=== PATIENT | male | born 1960 | race Caucasian/White ===

== ENCOUNTER 2021-03-29 13:50 | Inpatient (IN) | payer BC, MEDICARE ==
[~2021-03-29] VITALS: Ht 170.2 cm; Wt 138.8 kg
[2021-03-29 13:56] VITALS: BP 142/74
[2021-03-29] MEDS ORDERED: NAPROXEN500 MG PO (13:59)
[2021-03-29] MEDS ORDERED: ALLOPURINOL 10100 M3 PO (13:59)
[2021-03-29] MEDS ORDERED: ALL DAY ALLERGY10 M3 PO (13:59)
[2021-03-29] MEDS ORDERED: VITAMIN D310 MC3 PO (14:01)
[2021-03-29] MEDS ORDERED: DRIZALMA SPRINK20 MG PO (14:01)
[2021-03-29] MEDS ORDERED: VITAMIN C500 MG PO (14:01)
[2021-03-29 14:48] LABS: ABSOLUTE LYMPHOCYTES 0.5 thou/uL (0.8-5.3); ABSOLUTE MONOCYTES 0.5 thou/uL (0.0-1.2); ABSOLUTE NEUTROPHILS 3.1 thou/uL (1.6-8.1); BASOPHILS 0.1 %; EOSINOPHILS 0.1 %; HEMATOCRIT 44.1 % (42.0-52.0); HEMOGLOBIN 15.6 gm/dL (14.0-18.0); LYMPHOCYTES 13.1 %; MCH 31.1 pg (26.0-34.0); MCHC 35.3 g/dL (28.0-37.0); MONOCYTES 11.9 %; MPV 7.8 fl. (7.2-11.1); NUCLEATED RBCS 0 /100WBC; PLATELET COUNT* 149 thou/uL (150-400); POLYS 74.8 %; RBC 5.01 mil/uL (4.50-6.00); RDW-CV 13.4 % (10.5-14.5); WBC 4.2 thou/uL (4.0-11.0)
[2021-03-29 14:59] LABS: CALCIUM 8.8 mg/dL (8.5-10.1); POTASSIUM 3.5 mmol/L (3.5-5.1)
[2021-03-29 15:04] LABS: TOTAL BILIRUBIN 0.8 mg/dL (<0.1-1.0); TOTAL PROTEIN 7.3 g/dL (6.4-8.2)
--- NOTE | 2021-03-29 16:12 | EKG ---
[place] [address] ELECTROCARDIOGRAM REPORT Name: JUAN LOERA Room: [place] [address] ADM IN [facility]#: [id number] Admission: 03/29/21 Attend Phys: Elissa Reyes, Discharge: Date of : 58 Date of Service: 03/29/21 1428 Report #: [id number] THIS REPORT FOR: //name// [facility] ED Test Date: 2021-03-29 Test Time: 14:28:09 Pat Name: JUAN LOERA Department: Room: [facility] Gender: M [employer] Representative: AKILA : 1960 Requested By: Paola Schultz Order Number: [id number] MD: Arnol Bermudez Measurements Intervals [place] Rate: 90 P: 44 AK: 145 QRS: 0 QRSD: 82 T: 17 QT: 338 QTc: 414 Interpretive Statements Sinus rhythm No previous ECG available for comparison Electronically Signed On 03-29-2021 16:12:25 GYM SUPERVIS[employer] by Arnol Bermudez [email or web address] <ELECTRONICALLY SIGNED> By: Arnol Bermudez MD, [facility] 03/29/21 1612 1428 1428 Arnol Bermudze MD, [facility] /EPI
[2021-03-29 19:30] VITALS: BP 138/72
[2021-03-29 19:54] LABS: BE 1.1 mmol/L (-2 to +3); PCO2 36.8 mmHg (35.0-45.0); PO2 80.3 mmHg (75.0-100.0); pH 7.446 (7.340-7.450)
[2021-03-30] VITALS (8 sets, daily range): BP systolic 110–143; BP diastolic 50–68
[2021-03-30 03:34] LABS: HEMATOCRIT 40.8 % (42.0-52.0); HEMOGLOBIN 14.3 gm/dL (14.0-18.0); MCH 30.8 pg (26.0-34.0); MPV 7.4 fl. (7.2-11.1); RBC 4.64 mil/uL (4.50-6.00); RDW-CV 13.3 % (10.5-14.5); WBC 4.3 thou/uL (4.0-11.0)
[2021-03-30 03:52] LABS: ALBUMIN 2.5 g/dL (3.4-5.0); CALCIUM 8.4 mg/dL (8.5-10.1); CREATININE 0.7 mg/dL (0.6-1.3); MAGNESIUM 1.9 mg/dL (1.8-2.4); POTASSIUM 3.8 mmol/L (3.5-5.1); TOTAL BILIRUBIN 0.5 mg/dL (<0.1-1.0); TOTAL PROTEIN 6.4 g/dL (6.4-8.2)
[2021-03-31] VITALS: BP 126/59
[2021-03-31 04:34] VITALS: BP 110/50
[2021-03-31 04:38] LABS: HEMATOCRIT 41.3 % (42.0-52.0); HEMOGLOBIN 14.3 gm/dL (14.0-18.0); MCH 30.5 pg (26.0-34.0); MCHC 34.6 g/dL (28.0-37.0); MCV 88.3 fL (80.0-100.0); MPV 7.6 fl. (7.2-11.1); NUCLEATED RBCS 0 /100WBC; PLATELET COUNT* 182 thou/uL (150-400); RBC 4.67 mil/uL (4.50-6.00); RDW-CV 13.3 % (10.5-14.5); WBC 12.3 thou/uL (4.0-11.0)
[2021-03-31 04:58] LABS: ALBUMIN 2.4 g/dL (3.4-5.0); CALCIUM 8.6 mg/dL (8.5-10.1); CREATININE 0.9 mg/dL (0.6-1.3); MAGNESIUM 1.9 mg/dL (1.8-2.4); POTASSIUM 4.2 mmol/L (3.5-5.1); TOTAL BILIRUBIN 0.6 mg/dL (<0.1-1.0); TOTAL PROTEIN 6.2 g/dL (6.4-8.2)
[2021-03-31 06:31] LABS: ABSOLUTE LYMPHOCYTES 0.5 thou/uL (0.8-5.3); ABSOLUTE MONOCYTES 0.2 thou/uL (0.0-1.2); ABSOLUTE NEUTROPHILS 11.6 thou/uL (1.6-8.1)
[2021-03-31 06:33] LABS: PLATELET ESTIMATE ADEQUATE
[2021-03-31 08:00] VITALS: BP 122/48
[2021-03-31 12:00] VITALS: BP 126/51
[2021-03-31 18:10] VITALS: BP 128/62
[2021-03-31 20:00] VITALS: BP 131/59
[2021-04-01 00:54] VITALS: BP 121/79
[2021-04-01 04:00] VITALS: BP 120/51
[2021-04-01 04:39] LABS: ABSOLUTE LYMPHOCYTES 0.4 thou/uL (0.8-5.3); ABSOLUTE NEUTROPHILS 12.4 thou/uL (1.6-8.1); BASOPHILS 0.1 %; HEMATOCRIT 43.2 % (42.0-52.0); HEMOGLOBIN 14.8 gm/dL (14.0-18.0); LYMPHOCYTES 2.9 %; MCH 30.2 pg (26.0-34.0); MCHC 34.3 g/dL (28.0-37.0); MCV 88.1 fL (80.0-100.0); MPV 7.6 fl. (7.2-11.1); NUCLEATED RBCS 0 /100WBC; PLATELET COUNT* 242 thou/uL (150-400); RDW-CV 13.2 % (10.5-14.5); WBC 13.8 thou/uL (4.0-11.0)
[2021-04-01 05:10] LABS: ALBUMIN 2.8 g/dL (3.4-5.0); CALCIUM 8.3 mg/dL (8.5-10.1); CREATININE 0.9 mg/dL (0.6-1.3); MAGNESIUM 1.9 mg/dL (1.8-2.4); POTASSIUM 3.6 mmol/L (3.5-5.1); TOTAL BILIRUBIN 0.9 mg/dL (<0.1-1.0); TOTAL PROTEIN 6.6 g/dL (6.4-8.2)
[2021-04-01 07:56] VITALS: BP 132/62
[2021-04-01 13:00] VITALS: BP 130/70
[2021-04-01 21:06] VITALS: BP 120/51
[2021-04-02 00:51] VITALS: BP 119/57
[2021-04-02 04:00] VITALS: BP 115/61
[2021-04-02 08:00] VITALS: BP 140/46
[2021-04-02 12:00] VITALS: BP 143/72
[2021-04-02 14:19] LABS: ABSOLUTE LYMPHOCYTES 0.5 thou/uL (0.8-5.3); ABSOLUTE MONOCYTES 0.9 thou/uL (0.0-1.2); ABSOLUTE NEUTROPHILS 11.4 thou/uL (1.6-8.1); BASOPHILS 0.3 %; EOSINOPHILS 0.1 %; HEMATOCRIT 42.8 % (42.0-52.0); HEMOGLOBIN 14.6 gm/dL (14.0-18.0); LYMPHOCYTES 3.7 %; MCH 30.5 pg (26.0-34.0); MCHC 34.1 g/dL (28.0-37.0); MCV 89.4 fL (80.0-100.0); MPV 8.2 fl. (7.2-11.1); NUCLEATED RBCS 0 /100WBC; PLATELET COUNT* 236 thou/uL (150-400); POLYS 88.9 %; RBC 4.79 mil/uL (4.50-6.00); RDW-CV 13.3 % (10.5-14.5); WBC 12.9 thou/uL (4.0-11.0)
[2021-04-02 14:21] LABS: ALBUMIN 2.8 g/dL (3.4-5.0); CALCIUM 8.3 mg/dL (8.5-10.1); CREATININE 0.9 mg/dL (0.6-1.3); MAGNESIUM 2.2 mg/dL (1.8-2.4); POTASSIUM 4.2 mmol/L (3.5-5.1); TOTAL PROTEIN 5.8 g/dL (6.4-8.2)
--- NOTE | 2021-04-02 16:08 | CON ---
[address] [address] CONSULTATION Name: JUAN LOERA Kristin Room: [address] IN M.R.#: [id number] Admission: 03/29/21 Attend Phys: Elissa Reyes MD Discharge: Date of : 58 Report #: [id number] THIS REPORT FOR: cc: HAVEN SAUNDERS,Martinez Gamez MD ~ DATE OF CONSULTATION: 03/30/2021 REQUESTING PHYSICIAN: Consult has been requested by Dr. Reyes. INDICATION FOR CONSULTATION: Acute hypoxemic respiratory failure secondary to COVID-19. HISTORY OF PRESENT ILLNESS: A 61-year-old gentleman who has a history of morbid obesity, body mass index is 48. He has not been vaccinated for COVID. He does have obstructive sleep apnea, uses a CPAP at home, does not have any other cardiac or respiratory disease, came in with increasing shortness of breath as well as cough. The cough was his primary complaint. He was saturating only 80% on initial arrival. He has not had much sputum production. There is no chest pain. He does not have swelling of lower extremities or calf pain. He has had sleep complaints including disturbed sleep as well as sleepiness during the day. These in fact are better with the use of CPAP, although he has had problems with a broken strap on his CPAP. He does report having had recent fever and chills. He has been diaphoretic. He has had malaise. REVIEW OF SYSTEMS: Review of systems for 12 points is negative except as mentioned above. PAST MEDICAL HISTORY: Obstructive sleep apnea, on a CPAP at home, neck fusion, gout, morbid obesity, body mass index 48. SOCIAL HISTORY: Lifetime nonsmoker. No known history of heavy alcohol use or illegal drug use. CURRENT MEDICATIONS: List in [facility] reviewed. HOME MEDICATIONS: List in [facility] reviewed. ALLERGIES: STATINS. FAMILY HISTORY: No pertinent family history. PHYSICAL EXAMINATION: GENERAL: He is alert, awake and oriented, does not appear to be in any distress at this time, is saturating in the mid 90s, around 96% last 6 [place] [address] CONSULTATION Name: JUAN LOERA Room: [address]#: [id number] Admission: 03/29/21 Attend Phys: Elissa Reyes MD Discharge: Date of : 58 Report #: [id number] cannula. VITAL SIGNS: Has a pulse of 61 and a blood pressure of 112/48, respiratory rate is mildly elevated to 20. He is afebrile with a temperature of 36.8. HEENT: Head is normocephalic and atraumatic. NECK: Does not show raised JVP. CHEST: Breath sounds are bilaterally equal. No added sounds. HEART: Regular. There is no murmur. ABDOMEN: Soft and nontender. EXTREMITIES: Lower extremities, no edema, no calf tenderness. LABORATORY DATA: The patient's chest x-ray as well as CTA chest from yesterday in [facility] reviewed. There are infiltrates consistent with COVID. Also, there is fairly significant atelectasis. The patient's lab work is in [facility] and this is also reviewed. Arterial blood gas in [facility] reviewed. COVID-19 antigen positive. ASSESSMENT AND PLAN: 1. Acute hypoxemic respiratory failure secondary to COVID-19. I feel that it is important that the patient does wear a CPAP or BiPAP while asleep. He may have a broken strap on his home CPAP if that is the case, we will put him on one of our BiPAP machines. Recommend strictly avoiding supine sleep. 2. COVID-19. I agree with dexamethasone as well as remdesivir as currently prescribed. Follow LFTs. 3. Pulmonary infiltrates. I agree with treating him with ceftriaxone as well as doxycycline for covering for secondary bacterial infections as currently prescribed as well. We will also give him Lactinex. 4. Atelectasis. There are fairly significant atelectasis on his x-rays. I ordered Mucinex, recommend a BiPAP or CPAP as above. Recommend incentive spirometry. If this fails to improve on the x-ray tomorrow, then I will add Mucomyst. We will also treat him with the scheduled nebulized bronchodilators. I ordered a Brovana, also p.r.n. albuterol. 5. Obstructive sleep apnea. His strap is broken from CPAP, would need to be replaced prior to his discharge. 6. Deep venous thrombosis prophylaxis. Increase Lovenox to 60 b.i.d. intermediate dose. 7. Gastrointestinal prophylaxis, Protonix. 8. Clostridium difficile prophylaxis, Lactinex. Thanks for this consultation. <ELECTRONICALLY SIGNED> By: Martinez Metzger MD 04/02/21 1608 1413 2006Agaetano Metzger MD /nt
[2021-04-02 22:30] VITALS: BP 124/54
[2021-04-03] VITALS: BP 126/71
[2021-04-03 04:11] VITALS: BP 116/56
[2021-04-03 05:29] LABS: HEMATOCRIT 41.1 % (42.0-52.0); HEMOGLOBIN 14.3 gm/dL (14.0-18.0); MCH 30.4 pg (26.0-34.0); MCHC 34.7 g/dL (28.0-37.0); MCV 87.7 fL (80.0-100.0); MPV 7.5 fl. (7.2-11.1); NUCLEATED RBCS 0 /100WBC; PLATELET COUNT* 222 thou/uL (150-400); RBC 4.69 mil/uL (4.50-6.00); RDW-CV 12.9 % (10.5-14.5)
[2021-04-03 05:30] LABS: CREATININE 0.7 mg/dL (0.6-1.3); MAGNESIUM 2.2 mg/dL (1.8-2.4)
[2021-04-03 06:09] LABS: ABSOLUTE BASOPHILS 0.1 thou/uL (0.0-0.2); ABSOLUTE LYMPHOCYTES 0.9 thou/uL (0.8-5.3); ABSOLUTE MONOCYTES 0.9 thou/uL (0.0-1.2); ABSOLUTE NEUTROPHILS 11.1 thou/uL (1.6-8.1); PLATELET ESTIMATE ADEQUATE
[2021-04-03 08:54] VITALS: BP 134/60
[2021-04-03 11:30] VITALS: BP 135/64
[2021-04-03 20:00] VITALS: BP 126/66
[2021-04-04 00:31] VITALS: BP 114/52
[2021-04-04 04:41] VITALS: BP 112/57
[2021-04-04 05:18] LABS: ABSOLUTE LYMPHOCYTES 0.4 thou/uL (0.8-5.3); ABSOLUTE MONOCYTES 0.8 thou/uL (0.0-1.2); BASOPHILS 0.1 %; HEMATOCRIT 40.9 % (42.0-52.0); HEMOGLOBIN 14.1 gm/dL (14.0-18.0); LYMPHOCYTES 3.4 %; MCH 30.1 pg (26.0-34.0); MCHC 34.4 g/dL (28.0-37.0); MCV 87.6 fL (80.0-100.0); MONOCYTES 6.3 %; MPV 7.3 fl. (7.2-11.1); NUCLEATED RBCS 1 /100WBC; PLATELET COUNT* 221 thou/uL (150-400); POLYS 90.2 %; RBC 4.67 mil/uL (4.50-6.00); WBC 13.3 thou/uL (4.0-11.0)
[2021-04-04 06:04] LABS: ALBUMIN 2.5 g/dL (3.4-5.0); CREATININE 0.8 mg/dL (0.6-1.3); MAGNESIUM 2.2 mg/dL (1.8-2.4); POTASSIUM 4.1 mmol/L (3.5-5.1); TOTAL BILIRUBIN 0.8 mg/dL (<0.1-1.0); TOTAL PROTEIN 5.8 g/dL (6.4-8.2)
[2021-04-04 08:00] VITALS: BP 118/60
[2021-04-04 12:42] VITALS: BP 135/84
[2021-04-04 17:26] VITALS: BP 115/54
[2021-04-04 20:00] VITALS: BP 125/66
[2021-04-05 02:32] VITALS: BP 117/57
[2021-04-05 08:30] VITALS: BP 116/75
[2021-04-05 14:53] VITALS: BP 120/62
[2021-04-05 16:00] VITALS: BP 115/59
[2021-04-05 20:00] VITALS: BP 120/58
[2021-04-06] VITALS (7 sets, daily range): BP systolic 97–142; BP diastolic 47–72
[2021-04-06 05:23] LABS: ABSOLUTE LYMPHOCYTES 0.3 thou/uL (0.8-5.3); ABSOLUTE MONOCYTES 0.8 thou/uL (0.0-1.2); ABSOLUTE NEUTROPHILS 13.5 thou/uL (1.6-8.1); BASOPHILS 0.1 %; EOSINOPHILS 0.1 %; HEMATOCRIT 44.6 % (42.0-52.0); HEMOGLOBIN 15.4 gm/dL (14.0-18.0); MCH 29.8 pg (26.0-34.0); MCHC 34.6 g/dL (28.0-37.0); MCV 86.3 fL (80.0-100.0); MONOCYTES 5.4 %; MPV 7.9 fl. (7.2-11.1); NUCLEATED RBCS 0 /100WBC; PLATELET COUNT* 225 thou/uL (150-400); POLYS 92.4 %; RBC 5.17 mil/uL (4.50-6.00); RDW-CV 13.3 % (10.5-14.5); WBC 14.6 thou/uL (4.0-11.0)
[2021-04-06 05:43] LABS: ALBUMIN 2.6 g/dL (3.4-5.0); CALCIUM 8.1 mg/dL (8.5-10.1); CREATININE 0.9 mg/dL (0.6-1.3); MAGNESIUM 2.1 mg/dL (1.8-2.4); PHOSPHORUS* 3.2 mg/dL (2.5-4.9); POTASSIUM 4.4 mmol/L (3.5-5.1); TOTAL BILIRUBIN 0.8 mg/dL (<0.1-1.0)
[2021-04-07 04:23] VITALS: BP 98/73
[2021-04-07 06:17] LABS: HEMATOCRIT 42.8 % (42.0-52.0); HEMOGLOBIN 14.9 gm/dL (14.0-18.0); MCH 30.9 pg (26.0-34.0); MCHC 34.7 g/dL (28.0-37.0); MCV 88.9 fL (80.0-100.0); NUCLEATED RBCS 0 /100WBC; PLATELET COUNT* 209 thou/uL (150-400); RBC 4.82 mil/uL (4.50-6.00); RDW-CV 13.1 % (10.5-14.5); WBC 13.5 thou/uL (4.0-11.0)
[2021-04-07 06:31] LABS: ALBUMIN 2.4 g/dL (3.4-5.0); CALCIUM 7.9 mg/dL (8.5-10.1); CREATININE 0.8 mg/dL (0.6-1.3); MAGNESIUM 2.1 mg/dL (1.8-2.4); POTASSIUM 3.9 mmol/L (3.5-5.1); TOTAL BILIRUBIN 0.7 mg/dL (<0.1-1.0); TOTAL PROTEIN 5.6 g/dL (6.4-8.2)
[2021-04-07 07:16] LABS: ABSOLUTE LYMPHOCYTES 1.9 thou/uL (0.8-5.3); ABSOLUTE MONOCYTES 0.4 thou/uL (0.0-1.2); ABSOLUTE NEUTROPHILS 11.2 thou/uL (1.6-8.1)
[2021-04-07 07:17] LABS: PLATELET ESTIMATE ADEQUATE
[2021-04-07 08:55] VITALS: BP 106/55
[2021-04-07 12:00] VITALS: BP 108/58
[2021-04-07 16:00] VITALS: BP 112/62
[2021-04-07 20:00] VITALS: BP 118/65
[2021-04-08] VITALS: BP 113/44
[2021-04-08 04:00] VITALS: BP 115/65
[2021-04-08 08:34] VITALS: BP 105/56
[2021-04-08 09:39] LABS: ALBUMIN 2.7 g/dL (3.4-5.0); CALCIUM 8.5 mg/dL (8.5-10.1); CREATININE 0.9 mg/dL (0.6-1.3); POTASSIUM 3.8 mmol/L (3.5-5.1); TOTAL PROTEIN 6.2 g/dL (6.4-8.2)
[2021-04-08 12:00] VITALS: BP 105/57
[2021-04-08 16:00] VITALS: BP 100/65
[2021-04-08 21:00] VITALS: BP 111/69
[2021-04-09 00:21] VITALS: BP 101/48
[2021-04-09 04:00] VITALS: BP 99/60
[2021-04-09 05:09] LABS: ABSOLUTE LYMPHOCYTES 0.7 thou/uL (0.8-5.3); ABSOLUTE MONOCYTES 0.7 thou/uL (0.0-1.2); ABSOLUTE NEUTROPHILS 10.2 thou/uL (1.6-8.1); BASOPHILS 0.2 %; EOSINOPHILS 0.1 %; HEMOGLOBIN 14.7 gm/dL (14.0-18.0); LYMPHOCYTES 5.7 %; MCH 30.5 pg (26.0-34.0); MCHC 34.2 g/dL (28.0-37.0); MCV 89.2 fL (80.0-100.0); MONOCYTES 6.1 %; MPV 8.5 fl. (7.2-11.1); NUCLEATED RBCS 0 /100WBC; PLATELET COUNT* 209 thou/uL (150-400); POLYS 87.9 %; RBC 4.81 mil/uL (4.50-6.00); RDW-CV 13.2 % (10.5-14.5); WBC 11.6 thou/uL (4.0-11.0)
[2021-04-09 05:39] LABS: ALBUMIN 2.5 g/dL (3.4-5.0); CREATININE 0.9 mg/dL (0.6-1.3); TOTAL BILIRUBIN 0.7 mg/dL (<0.1-1.0); TOTAL PROTEIN 5.9 g/dL (6.4-8.2)
[2021-04-09 12:00] VITALS: BP 134/65
[2021-04-09] MEDS ORDERED: DECADRON6 MG PO (13:06)
[2021-04-09 14:02] VITALS: BP 99/60
[2021-04-09 16:12] VITALS: BP 99/60
== END 2021-04-09 16:51 | disposition home health service (06) | DRG 177 ==
LOC: M.ERS 13:50 → M.ORTHSURG 15:17 → M.TBA-ER 15:17 → M.ORTHSURG 03-30 22:00
PROVIDERS: Internal Medicine; Internal Medicine Critical Care Medicine; Physician Assistant; ADMIT Internal Medicine; ATTEND Internal Medicine
PROC: 5A09357 Assistance with Respiratory Ventilation, Less than 24 Consecutive Hours, Continuous Positive Airway Pressure (ICD-10-PCS; principal; 2021-03-29)
PROC: XW033E5 Introduction of Remdesivir Anti-infective into Peripheral Vein, Percutaneous Approach, New Technology Group 5 (ICD-10-PCS; principal; 2021-03-29)
PROC: 5A09357 Assistance with Respiratory Ventilation, Less than 24 Consecutive Hours, Continuous Positive Airway Pressure (ICD-10-PCS; 2021-03-30)
PROC: 5A0935A Assistance with Respiratory Ventilation, Less than 24 Consecutive Hours, High Flow/Velocity Cannula (ICD-10-PCS; 2021-03-30)
PROC: 5A09357 Assistance with Respiratory Ventilation, Less than 24 Consecutive Hours, Continuous Positive Airway Pressure (ICD-10-PCS; 2021-03-31)
PROC: 5A0935A Assistance with Respiratory Ventilation, Less than 24 Consecutive Hours, High Flow/Velocity Cannula (ICD-10-PCS; 2021-03-31)
PROC: 5A09357 Assistance with Respiratory Ventilation, Less than 24 Consecutive Hours, Continuous Positive Airway Pressure (ICD-10-PCS; 2021-04-01)
PROC: 5A0935A Assistance with Respiratory Ventilation, Less than 24 Consecutive Hours, High Flow/Velocity Cannula (ICD-10-PCS; 2021-04-01)
PROC: 5A0935A Assistance with Respiratory Ventilation, Less than 24 Consecutive Hours, High Flow/Velocity Cannula (ICD-10-PCS; 2021-04-02)
PROC: 5A09357 Assistance with Respiratory Ventilation, Less than 24 Consecutive Hours, Continuous Positive Airway Pressure (ICD-10-PCS; 2021-04-02)
PROC: 5A09357 Assistance with Respiratory Ventilation, Less than 24 Consecutive Hours, Continuous Positive Airway Pressure (ICD-10-PCS; 2021-04-03)
PROC: 5A0935A Assistance with Respiratory Ventilation, Less than 24 Consecutive Hours, High Flow/Velocity Cannula (ICD-10-PCS; 2021-04-03)
PROC: 5A09357 Assistance with Respiratory Ventilation, Less than 24 Consecutive Hours, Continuous Positive Airway Pressure (ICD-10-PCS; 2021-04-04)
PROC: 5A0935A Assistance with Respiratory Ventilation, Less than 24 Consecutive Hours, High Flow/Velocity Cannula (ICD-10-PCS; 2021-04-04)
PROC: 5A0935A Assistance with Respiratory Ventilation, Less than 24 Consecutive Hours, High Flow/Velocity Cannula (ICD-10-PCS; 2021-04-05)
PROC: 5A09357 Assistance with Respiratory Ventilation, Less than 24 Consecutive Hours, Continuous Positive Airway Pressure (ICD-10-PCS; 2021-04-05)
PROC: 5A09357 Assistance with Respiratory Ventilation, Less than 24 Consecutive Hours, Continuous Positive Airway Pressure (ICD-10-PCS; 2021-04-06)
PROC: 5A0935A Assistance with Respiratory Ventilation, Less than 24 Consecutive Hours, High Flow/Velocity Cannula (ICD-10-PCS; 2021-04-06)
PROC: 5A0935A Assistance with Respiratory Ventilation, Less than 24 Consecutive Hours, High Flow/Velocity Cannula (ICD-10-PCS; 2021-04-07)
PROC: 5A0935A Assistance with Respiratory Ventilation, Less than 24 Consecutive Hours, High Flow/Velocity Cannula (ICD-10-PCS; 2021-04-08)
PROC: 5A09357 Assistance with Respiratory Ventilation, Less than 24 Consecutive Hours, Continuous Positive Airway Pressure (ICD-10-PCS; 2021-04-08)
PROC: 5A09357 Assistance with Respiratory Ventilation, Less than 24 Consecutive Hours, Continuous Positive Airway Pressure (ICD-10-PCS; 2021-04-09)
PROC: 5A0935A Assistance with Respiratory Ventilation, Less than 24 Consecutive Hours, High Flow/Velocity Cannula (ICD-10-PCS; 2021-04-09)
DX: U07.1 COVID-19 (principal); J96.01 Acute respiratory failure with hypoxia; J12.82 Pneumonia due to coronavirus disease 2019; J15.6 Pneumonia due to other Gram-negative bacteria; J98.11 Atelectasis; Z68.42 Body mass index [BMI] 45.0-49.9, adult; M10.9 Gout, unspecified; G47.33 Obstructive sleep apnea (adult) (pediatric); E66.01 Morbid (severe) obesity due to excess calories; Z88.8 Allergy status to other drugs, medicaments and biological substances